=== PATIENT | male | born 1980 | race Hispanic/Latino ===

== ENCOUNTER 2017-02-05 21:26 | Emergency (ER) | payer MEDICAID ==
[2017-02-06] MEDS ORDERED: NORCO 5/325 PO ONE (01:04)
[2017-02-06] MEDS ORDERED: DELTASONE PO ONE (01:04)
[2017-02-06] MEDS ORDERED: KEFLEX PO ONE (01:05)
--- NOTE | 2017-02-06 01:37 | Emergency Department Report ---
HPI - General Chief Complaint: Wound/Laceration Time Seen by Provider: 02/06/17 00:27 - HPI HPI: Patient is a 36-year-old male presents to ED complaining of redness and a small area of left hand and wrist. Patient states a couple days ago he was helping his friend Pablo spine he felt something bite him on his arm. Patient states the past 2 days he has some swelling in his hand and some redness. Patient states he patent at the middle of the bite which started to drain. He denies fevers/chills/nausea/vomiting/chest pain/shortness of breath or any other problems. ED Past Medical Hx - Past Medical History Hx Seizures: Yes Hx Psychiatric Treatment: Yes Additional medical history: schizophrenia. bipolar. depression - Surgical History Additional Surgical History: hernia repair - Social History Smoking Status: Never Smoker Substance Use Type: None - Medications Home Medications: Home Medications Medication Instructions Recorded Confirmed Last Taken Type Sulfamethoxazole/Trimethoprim 1 each PO BID #20 tablet 01/28/14 Unknown Rx [Bactrim Ds] Cephalexin [Keflex] 500 mg PO Q6H #30 capsule 02/06/17 Unknown Rx HYDROcodone/APAP 5-325 [[place] 1 each PO Q6HR PRN #12 tablet 02/06/17 Unknown Rx 5-325 mg TAB] Ibuprofen [Motrin] 800 mg PO Q8HR PRN #30 tablet 02/06/17 Unknown Rx ED Review of Systems ROS: Stated complaint: LT HAND SWELLING POSS SPIDER BITE Other details as noted in HPI Constitutional: denies: chills, fever Eyes: denies: eye pain, eye discharge, vision change ENT: denies: ear pain, throat pain, dental pain, hearing loss Respiratory: denies: cough, shortness of breath, wheezing Cardiovascular: denies: chest pain, palpitations Endocrine: no symptoms reported Gastrointestinal: denies: abdominal pain, nausea, diarrhea Genitourinary: denies: urgency, dysuria Musculoskeletal: denies: back pain, joint swelling, arthralgia Skin: other (redness and swelling of the hand). denies: rash, lesions, pruritus Neurological: denies: headache, weakness, numbness, paresthesias Psychiatric: denies: anxiety, depression Hematological/Lymphatic: denies: easy bleeding, easy bruising Physical Exam - Physical Exam Vital Signs: Vital Signs 02/05/17 21:39 Temperature 98.8 F Pulse Rate 110 H Respiratory 18 Rate Blood Pressure 137/90 O2 Sat by Pulse 100 Oximetry Physical Exam: GENERAL: Alert and oriented x3, no apparent distress, Normal Gait, atraumatic. HEAD: Head is normocephalic and a-traumatic. EYES: Extra ocular muscles are intact. Pupils are equal, round, and reactive to light and accommodation. LUNGS: Symetrical with respiration, No wheezing, no rales or crackles, CTAB. HEART: S1, S2 present, regular rate and rhythm without murmur, no rubs, no gallops. Non tender to palpation EXTREMITIES/MUSCULOSKELETAL: No cyanosis, clubbing, rash, lesions or edema. Full ROM bilaterally. UE/LE Pulses 2+ bilaterally. 2. 3 cm erythematous swelling nonfluctuant,draining pus cellulitis on the posterior aspect of the left wrist. Minimal swelling of the left hand fingers intact. NEUROLOGIC: The patient is cooperative with no focal neurologic deficits. Cranial nerves II through XII are grossly intact. Capillary refill and normal 2 seconds bilaterally SKIN: Warm and dry, No lesions, No ulceration or induration present. ED Course Vital Signs 02/05/17 21:39 Temperature 98.8 F Pulse Rate 110 H Respiratory 18 Rate Blood Pressure 137/90 O2 Sat by Pulse 100 Oximetry ED Medical Decision Making - Medical Decision Making 36-year-old male presents with cellulitis of the left hand ED course: Patient received antibiotic, pain medication ED. Discussed with patient and patient will be sent home on traumatization of pain medication and antibiotics. Discussed with patient to keep arm dry. Discussed the patient to follow-up with primary care physician P to 5 days. Discussed if symptoms worsen to return to ED Vital signs are normal patient is not acutely distressed patient was sent instructions given and states he'll follow-up. Critical care attestation.: If time is entered above; I have spent that time in minutes in the direct care of this critically ill patient, excluding procedure time. ED Disposition Clinical Impression: Cellulitis of arm, left Insect bite Qualifiers: Encounter type: initial encounter Qualified Code(s): W57.XXXA - Bitten or stung by nonvenomous insect and other nonvenomous arthropods, initial encounter Disposition: - TO HOME OR SELFCARE Is pt being admited?: No Does the pt Need Aspirin: No Condition: Stable Instructions: Cellulitis (ED), Insect Bite or Sting (ED), Heat Pack Application (ED) Prescriptions: Cephalexin [Keflex] 500 mg PO Q6H #30 capsule HYDROcodone/APAP 5-325 [[place] 5-325 mg TAB] 1 each PO Q6HR PRN #12 tablet PRN Reason: Pain Ibuprofen [Motrin] 800 mg PO Q8HR PRN #30 tablet PRN Reason: Pain Referrals: PRIMARY CARE, [Primary Care Provider] - 3-5 Days [facility] [place] [Outside] - 3-5 Days [facility] [Outside] - 3-5 Days Forms: Accompanied Note, Work/School Release Form(ED) Time of Disposition: 01:42
[2017-02-06 02:24] VITALS: BP 128/76
== END 2017-02-06 02:24 | disposition home or self-care (01) ==
LOC: ED 21:26
DX: L03.114 Cellulitis of left upper limb (principal); F31.9 Bipolar disorder, unspecified; F20.9 Schizophrenia, unspecified; W57.XXXA Bitten or stung by nonvenomous insect and other nonvenomous arthropods, initial encounter; Y93.9 Activity, unspecified; Y92.9 Unspecified place or not applicable; Y99.9 Unspecified external cause status
CPT/HCPCS: 99282; J7512

== ENCOUNTER 2017-02-07 21:38 | Emergency (ER) | payer MEDICARE ==
[2017-02-08 00:18] LABS: Blood Urea Nitrogen 12 mg/dL (9-20); Calcium 9.2 mg/dL (8.4-10.2); Carbon Dioxide 25 mmol/L (22-30); Chloride 98.9 mmol/L (98-107); Glucose 112 mg/dL (75-100); Potassium 3.5 mmol/L (3.6-5.0); Sodium 137 mmol/L (137-145)
[2017-02-08 00:22] LABS: Hematocrit 39.1 % (35.5-45.6); Hemoglobin 12.8 gm/dl (11.8-15.2); Mean Corpuscular HGB Conc 33 % (32-34); Mean Corpuscular Hemoglobin 29 pg (28-32); Mean Corpuscular Volume 90 fl (84-94); Platelet Count 318 K/mm3 (140-440); Red Blood Count 4.35 M/mm3 (3.65-5.03); Red Cell Distribution Width 13.7 % (13.2-15.2); White Blood Count 17.8 K/mm3 (4.5-11.0)
[2017-02-08 00:38] LABS: Anion Gap 17 mmol/L
[2017-02-08 01:20] VITALS: BP 129/87
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
[2017-02-08 02:09] LABS: Basophils % (Manual) 0 % (0.0-1.8); Blastocytes % (Manual) 0 %; Eosinophils % (Manual) 0 % (0.0-4.3)
[2017-02-08 02:12] LABS: Diff Status Complete; Platelet Estimate Consistent w Auto
--- NOTE | 2017-02-11 16:03 | ED Elopement Review ---
ED Pt Elopement review - Results review Lab results: Laboratory Tests 02/07/17 02/07/17 23:37 23:37 WBC 17.8 H RBC 4.35 Hgb 12.8 Hct 39.1 MCV 90 MCH 29 MCHC 33 RDW 13.7 Plt Count 318 Add Manual Diff Complete Total Counted 100 Seg Neuts % (Manual) 74.0 H Band Neutrophils % 2.0 Lymphocytes % (Manual) 20.0 Reactive Lymphs % (Man) 1.0 Monocytes % (Manual) 3.0 Eosinophils % (Manual) 0 Basophils % (Manual) 0 Metamyelocytes % 0 Myelocytes % 0 Promyelocytes % 0 Blast Cells % 0 Nucleated RBC % Not Reportable Seg Neutrophils # Man 13.2 H Band Neutrophils # 0.4 Lymphocytes # (Manual) 3.6 Abs React Lymphs (Man) 0.2 Monocytes # (Manual) 0.5 Eosinophils # (Manual) 0.0 Basophils # (Manual) 0.0 Metamyelocytes # 0.0 Myelocytes # 0.0 Promyelocytes # 0.0 Blast Cells # 0.0 WBC Morphology Not Reportable Hypersegmented Neuts Not Reportable Hyposegmented Neuts Not Reportable Hypogranular Neuts Not Reportable Smudge Cells Not Reportable Toxic Granulation Not Reportable Toxic Vacuolation Not Reportable Dohle Bodies Not Reportable Pelger-Huet Anomaly Not Reportable Fang Rods Not Reportable Platelet Estimate Consistent w auto Clumped Platelets Not Reportable Plt Clumps, EDTA Not Reportable Large Platelets Not Reportable Giant Platelets Not Reportable Platelet Satelliting Not Reportable Plt Morphology Comment Not Reportable RBC Morphology Not Reportable Dimorphic RBCs Not Reportable Polychromasia Not Reportable Hypochromasia Not Reportable Poikilocytosis Not Reportable Anisocytosis Not Reportable Microcytosis Not Reportable Macrocytosis Not Reportable Spherocytes Not Reportable Pappenheimer Bodies Not Reportable Sickle Cells Not Reportable Target Cells Not Reportable Tear Drop Cells Not Reportable Ovalocytes Not Reportable Helmet Cells Not Reportable Barajas-Truro Bodies Not Reportable Baker Rings Not Reportable Commercial Point Cells Not Reportable Bite Cells Not Reportable Crenated Cell Not Reportable Elliptocytes Not Reportable Acanthocytes (Spur) Not Reportable Rouleaux Not Reportable Hemoglobin C Crystals Not Reportable Schistocytes Not Reportable Malaria parasites Not Reportable Petr Bodies Not Reportable Hem Pathologist Commnt No Sodium 137 Potassium 3.5 L Chloride 98.9 Carbon Dioxide 25 Anion Gap 17 BUN 12 Creatinine 0.6 L Estimated GFR > 60 BUN/Creatinine Ratio 20.00 Glucose 112 H Calcium 9.2 - Call Back decision Pt Call Back Decision: Call pt to return to ED [facility]
== END 2017-02-08 03:01 ==
LOC: ED 21:38
DX: S69.92XA Unspecified injury of left wrist, hand and finger(s), initial encounter (principal); Z53.21 Procedure and treatment not carried out due to patient leaving prior to being seen by health care provider; X58.XXXA Exposure to other specified factors, initial encounter; Y93.89 Activity, other specified; Y92.89 Other specified places as the place of occurrence of the external cause; Y99.8 Other external cause status
CPT/HCPCS: 36415; 80048; 85007; 85025; 87040

== ENCOUNTER 2018-04-16 04:27 | Emergency (ER) | payer MEDICAID, MEDICARE ==
[2018-04-16 05:15] LABS: Hematocrit 45.3 % (35.5-45.6); Hemoglobin 15.4 gm/dl (11.8-15.2); Mean Corpuscular HGB Conc 34 % (32-34); Mean Corpuscular Hemoglobin 30 pg (28-32); Mean Corpuscular Volume 88 fl (84-94); Platelet Count 390 K/mm3 (140-440); Red Blood Count 5.18 M/mm3 (3.65-5.03); Red Cell Distribution Width 13.4 % (13.2-15.2)
[2018-04-16 05:26] LABS: Bacteria,Urine 1+ /HPF (Negative); Bilirubin,Urine NEG (Negative); Blood,Urine NEG (Negative); Color,Urine Yellow (Yellow); Mucus,Urine 3+ /HPF
[2018-04-16 05:31] LABS: Amphetamine Screen,Urine PRESUMPTIVE NEGATIVE; Benzodiazepines Screen,Urine PRESUMPTIVE NEGATIVE; Methadone Screen,Urine PRESUMPTIVE NEGATIVE; Opiate Screen,Urine PRESUMPTIVE NEGATIVE
[2018-04-16 05:38] LABS: BUN/Creatinine Ratio 24; Blood Urea Nitrogen 22 mg/dL (9-20); Calcium 9.4 mg/dL (8.4-10.2); Hemolysis Index 6
[2018-04-16 05:54] LABS: Cannabinoid Screen,Urine PRESUMPTIVE POSITIVE; Cocaine Screen,Urine PRESUMPTIVE POSITIVE
[2018-04-16 06:04] LABS: Band Neutrophils # (Manual) 0.3 K/mm3; Basophils % (Manual) 0 % (0.0-1.8); Platelet Estimate Consistent w Auto; RBC Morphology Normal; Total Cells Counted 100
[2018-04-16] MEDS ORDERED: NACL 0.9% 1000 ML 1,000 ML IV ONE (11:03)
[2018-04-16 11:18] LABS: Creatine Kinase MB 8.1 ng/mL (0.0-4.0)
[2018-04-16 11:20] LABS: Alanine Aminotransferase 21 units/L (7-56); Albumin 5.2 g/dL (3.9-5)
[2018-04-16 11:25] LABS: Bilirubin,Direct < 0.2 mg/dL (0-0.2)
--- NOTE | 2018-04-16 15:12 | Consultation ---
History of Present Illness - Reason for Consult Consult date: 04/16/18 Reason for consult: Mental Health Evaluation Requesting physician: TOSHIA TAVERA - Chief Complaint Chief complaint: "I need help" - History of Present Psychiatric Illness 37 y.o. white male presenting to the ER for detox. Today the patient is calm and cooperative during the assessment. He stated that his life has been up and down because of recreational drug use. He stated that "drugs" has been his down fall. He stated being in rehab once, but didn't complete the program. He stated that he used marijuana, methamphetamine, and cocaine prior to his ER visit. He stated binging (drugs) for the past 4 days. He stated seeing a psychiatrist for depression in the past. He stated that his depression may "disappear" once he stop using "drugs" and make better decisions. He denies SI/HI's and AVH's. He denies a poor appetite, but stated that his sleep has been erratic since being homeless. He stated drinking alcohol "sometimes." Medications and Allergies Allergies Allergy/AdvReac Type Severity Reaction Status Date / Time No Known Allergies Allergy Unverified 09/28/13 15:45 Home Medications Medication Instructions Recorded Confirmed Last Taken Type Sulfamethoxazole/Trimethoprim 1 each PO BID #20 tablet 01/28/14 Unknown Rx [Bactrim Ds] HYDROcodone/APAP 5-325 [[place] 1 each PO Q6HR PRN #12 tablet 02/06/17 Unknown Rx 5-325 mg TAB] Ibuprofen [Motrin] 800 mg PO Q8HR PRN #30 tablet 02/06/17 Unknown Rx cephALEXin [Keflex] 500 mg PO Q6H #30 capsule 02/06/17 Unknown Rx Past psychiatric history - Past Medical History Past Medical History: No medical history Past Surgical History: No surgical history - past Psychiatric treatment and history psychiatric treatment history: Hx of substance abuse. Denies a fam psy hx. - Social History Social history: other (Homeless) Mental Status Exam - Vital signs Last Vital Signs Temp 98.2 F 04/16/18 08:00 Pulse 92 H 04/16/18 08:00 Resp 18 04/16/18 11:07 BP 125/95 04/16/18 08:00 Pulse Ox 99 04/16/18 08:00 - Exam Narrative exam: MSE: Appearance: calm, cooperative Behavior: regular eye contact Speech: regular rate and tone Mood: "okay" Affect: congruent to mood Thought Process: linear Thought Content: denies SI/HI's and AVH's Motor Activity: ambulatory Cognition: A/O x3 Insight: appropriate Judgment: appropriate Results Result Diagrams: 04/16/18 04:57 04/16/18 04:57 Abnormal lab results 04/16/18 04/16/18 04/16/18 Range/Units 04:57 04:57 04:57 WBC (4.5-11.0) K/mm3 RBC (3.65-5.03) M/mm3 Hgb (11.8-15.2) gm/dl Lymphocytes % (Manual) (13.4-35.0) % Lymphocytes # (Manual) (1.2-5.4) K/mm3 Sodium 134 L (137-145) mmol/L Chloride 95.0 L (98-107) mmol/L Carbon Dioxide 21 L (22-30) mmol/L BUN 22 H (9-20) mg/dL Glucose 101 H (75-100) mg/dL Total Creatine Kinase (55-170) units/L CK-MB (CK-2) (0.0-4.0) ng/mL Albumin (3.9-5) g/dL Ur Specific [place] (1.003-1.030) Salicylates < 0.3 L (2.8-20.0) mg/dL Acetaminophen < 5.0 L (10.0-30.0) ug/mL 04/16/18 04/16/18 04/16/18 Range/Units 04:57 04:57 05:00 WBC 13.9 H (4.5-11.0) K/mm3 RBC 5.18 H (3.65-5.03) M/mm3 Hgb 15.4 H (11.8-15.2) gm/dl Lymphocytes % (Manual) 48.0 H (13.4-35.0) % Lymphocytes # (Manual) 6.7 H (1.2-5.4) K/mm3 Sodium (137-145) mmol/L Chloride (98-107) mmol/L Carbon Dioxide (22-30) mmol/L BUN (9-20) mg/dL Glucose (75-100) mg/dL Total Creatine Kinase 700 H (55-170) units/L CK-MB (CK-2) 8.1 H (0.0-4.0) ng/mL Albumin 5.2 H (3.9-5) g/dL Ur Specific [place] 1.034 H (1.003-1.030) Salicylates (2.8-20.0) mg/dL Acetaminophen (10.0-30.0) ug/mL All other labs normal. Assessment and Plan Assessment and plan: Impression: Hx of Depression. Substance Use DO (cocaine). Cannabis Use DO. Today the patient is calm and cooperative during the assessment. Recommendation/Plan: The patient will volunteer for [facility] for outpatient psy services once discharged. Discussed the importance to abstain from recreational drug use.
--- NOTE | 2018-04-16 15:40 | Emergency Department Report ---
ED Psych HPI - General Chief Complaint: Psych Stated Complaint: MENTAL HEALTH Time Seen by Provider: 04/16/18 10:19 Source: patient Mode of arrival: Ambulatory - History of Present Illness Initial Comments: 37-year-old male states that he is looking for a long-term detox program for cocaine. He states that he was admitted to [facility] last week and discharged from the acute care program. He states that he is not suicidal homicidal nor hallucinating. He clearly is requesting a longterm rehabilitation program. He denies any overdose or thoughts of self harm. I believe he was admitted last week most likely for suicidal ideation. He states that he has been involved with a girl and abusing crack cocaine. He also states that he has been walking a lot and that his feet hurt. Otherwise he has no active complaints. MD Complaint: other (substance abuse) -: year(s) Associated Psychiatric Symptoms: none History of same: Yes Quality: intermittent Improves With: none Worsens With: none Context: recent drug abuse Associated Symptoms: denies other symptoms (except as above indicated) Treatments Prior to Arrival: none - Related Data Previous Rx's Medication Instructions Recorded Last Taken Type Sulfamethoxazole/Trimethoprim 1 each PO BID #20 tablet 01/28/14 Unknown Rx [Bactrim Ds] HYDROcodone/APAP 5-325 [[place] 1 each PO Q6HR PRN #12 tablet 02/06/17 Unknown Rx 5-325 mg TAB] Ibuprofen [Motrin] 800 mg PO Q8HR PRN #30 tablet 02/06/17 Unknown Rx cephALEXin [Keflex] 500 mg PO Q6H #30 capsule 02/06/17 Unknown Rx Allergies Allergy/AdvReac Type Severity Reaction Status Date / Time No Known Allergies Allergy Unverified 09/28/13 15:45 ED Review of Systems ROS: Stated complaint: MENTAL HEALTH Other details as noted in HPI Constitutional: denies: chills, fever Eyes: denies: eye pain, eye discharge, vision change ENT: denies: ear pain, throat pain Respiratory: denies: cough, shortness of breath, wheezing Cardiovascular: denies: chest pain, palpitations Endocrine: no symptoms reported Gastrointestinal: denies: abdominal pain, nausea, diarrhea Genitourinary: denies: urgency, dysuria Musculoskeletal: denies: back pain, joint swelling, arthralgia Skin: denies: rash, lesions Neurological: denies: headache, weakness, paresthesias Psychiatric: as per HPI. denies: anxiety, depression, auditory hallucinations, visual hallucinations, homicidal thoughts, suicidal thoughts Hematological/Lymphatic: denies: easy bleeding, easy bruising ED Past Medical Hx - Past Medical History Previous Medical History?: Yes Hx Seizures: Yes Hx Psychiatric Treatment: Yes (Bipolar, Depression, Schizophrenia) Additional medical history: schizophrenia, bipolar, depression as child - Surgical History Past Surgical History?: Yes Additional Surgical History: hernia repair - Social History Smoking Status: Current Every Day Smoker Substance Use Type: Cocaine - Medications Home Medications: Home Medications Medication Instructions Recorded Confirmed Last Taken Type Sulfamethoxazole/Trimethoprim 1 each PO BID #20 tablet 01/28/14 Unknown Rx [Bactrim Ds] HYDROcodone/APAP 5-325 [[place] 1 each PO Q6HR PRN #12 tablet 02/06/17 Unknown Rx 5-325 mg TAB] Ibuprofen [Motrin] 800 mg PO Q8HR PRN #30 tablet 02/06/17 Unknown Rx cephALEXin [Keflex] 500 mg PO Q6H #30 capsule 02/06/17 Unknown Rx ED Physical Exam - General Limitations: No Limitations General appearance: alert, in no apparent distress - Head Head exam: Present: atraumatic, normocephalic - Eye Eye exam: Present: normal appearance, PERRL, EOMI. Absent: scleral icterus - ENT ENT exam: Present: mucous membranes moist - Neck Neck exam: Present: normal inspection - Respiratory Respiratory exam: Present: normal lung sounds bilaterally. Absent: respiratory distress - Cardiovascular Cardiovascular Exam: Present: regular rate, normal rhythm. Absent: systolic murmur, diastolic murmur, rubs, gallop - GI/Abdominal GI/Abdominal exam: Present: soft, normal bowel sounds. Absent: distended, tenderness, guarding, rebound, rigid - Rectal Rectal exam: Present: deferred - Extremities Exam Extremities exam: Present: normal inspection - Back Exam Back exam: Present: normal inspection - Neurological Exam Neurological exam: Present: alert, oriented X3, CN II-XII intact. Absent: motor sensory deficit - Psychiatric Psychiatric exam: Present: normal mood, flat affect - Skin Skin exam: Present: warm, dry, intact, normal color. Absent: rash ED Course Vital Signs 04/16/18 04/16/18 04/16/18 04:31 05:56 08:00 Temperature 98.8 F 98.2 F Pulse Rate 101 H 92 H Respiratory 18 20 Rate Blood Pressure 129/95 125/95 Blood Pressure 131/85 [Right] O2 Sat by Pulse 95 99 Oximetry 04/16/18 11:07 Temperature Pulse Rate Respiratory 18 Rate Blood Pressure Blood Pressure [Right] O2 Sat by Pulse Oximetry - Reevaluation(s) Reevaluation #1: Referred with psychiatric nurse practitioner who saw the patient. They agree that the patient is appropriate for a PHP program at [place]. He will be sent there. He was noted to have mild rhabdomyolysis. He was given IV fluids. That should suffice. On reexamination the patient had no complaints. He was resting comfortably. 04/16/18 15:41 04/16/18 15:41 ED Medical Decision Making - Lab Data Result diagrams: 04/16/18 04:57 04/16/18 04:57 Laboratory Results - last 24 hr 04/16/18 04/16/18 04/16/18 04:57 04:57 04:57 WBC RBC Hgb Hct MCV MCH MCHC RDW Plt Count Lymph # Add Manual Diff Total Counted Seg Neuts % (Manual) Band Neutrophils % Lymphocytes % (Manual) Reactive Lymphs % (Man) Monocytes % (Manual) Eosinophils % (Manual) Basophils % (Manual) Metamyelocytes % Myelocytes % Promyelocytes % Blast Cells % Nucleated RBC % Seg Neutrophils # Man Band Neutrophils # Lymphocytes # (Manual) Abs React Lymphs (Man) Monocytes # (Manual) Eosinophils # (Manual) Basophils # (Manual) Metamyelocytes # Myelocytes # Promyelocytes # Blast Cells # WBC Morphology Hypersegmented Neuts Hyposegmented Neuts Hypogranular Neuts Smudge Cells Toxic Granulation Toxic Vacuolation Dohle Bodies Pelger-Huet Anomaly Fang Rods Platelet Estimate Clumped Platelets Plt Clumps, EDTA Large Platelets Giant Platelets Platelet Satelliting Plt Morphology Comment RBC Morphology Dimorphic RBCs Polychromasia Hypochromasia Poikilocytosis Anisocytosis Microcytosis Macrocytosis Spherocytes Pappenheimer Bodies Sickle Cells Target Cells Tear Drop Cells Ovalocytes Helmet Cells [place] Bodies [place] Rings [place] Cells Bite Cells Crenated Cell Elliptocytes Acanthocytes (Spur) Rouleaux Hemoglobin C Crystals Schistocytes Malaria parasites Petr Bodies Hem Pathologist Commnt Sodium 134 L Potassium 3.6 Chloride 95.0 L Carbon Dioxide 21 L Anion Gap 22 BUN 22 H Creatinine 0.9 Estimated GFR > 60 BUN/Creatinine Ratio 24 Glucose 101 H Calcium 9.4 Total Bilirubin Direct Bilirubin Indirect Bilirubin AST ALT Alkaline Phosphatase Total Creatine Kinase CK-MB (CK-2) CK-MB (CK-2) Rel Index Total Protein Albumin Albumin/Globulin Ratio Urine Color Urine Turbidity Urine pH Ur Specific [place] Urine Protein Urine Glucose (UA) Urine Ketones Urine Blood Urine Nitrite Urine Bilirubin Urine Urobilinogen Ur Leukocyte Esterase Urine WBC (Auto) Urine RBC (Auto) U Epithel Cells (Auto) Urine Bacteria (Auto) Urine Mucus Salicylates < 0.3 L Urine Opiates Screen Urine Methadone Screen Acetaminophen < 5.0 L Ur Barbiturates Screen Ur Phencyclidine Scrn Ur Amphetamines Screen U Benzodiazepines Scrn Urine Cocaine Screen U Marijuana (THC) Screen Drugs of Abuse Note Plasma/Serum Alcohol 04/16/18 04/16/18 04/16/18 04:57 04:57 04:57 WBC 13.9 H RBC 5.18 H Hgb 15.4 H Hct 45.3 MCV 88 MCH 30 MCHC 34 RDW 13.4 Plt Count 390 Lymph # Senior Technical Analyst Add Manual Diff Complete Total Counted 100 Seg Neuts % (Manual) 44.0 Band Neutrophils % 2.0 Lymphocytes % (Manual) 48.0 H Reactive Lymphs % (Man) 2.0 Monocytes % (Manual) 3.0 Eosinophils % (Manual) 1.0 Basophils % (Manual) 0 Metamyelocytes % 0 Myelocytes % 0 Promyelocytes % 0 Blast Cells % 0 Nucleated RBC % Not Reportable Seg Neutrophils # Man 6.1 Band Neutrophils # 0.3 Lymphocytes # (Manual) 6.7 H Abs React Lymphs (Man) 0.3 Monocytes # (Manual) 0.4 Eosinophils # (Manual) 0.1 Basophils # (Manual) 0.0 Metamyelocytes # 0.0 Myelocytes # 0.0 Promyelocytes # 0.0 Blast Cells # 0.0 WBC Morphology Not Reportable Hypersegmented Neuts Not Reportable Hyposegmented Neuts Not Reportable Hypogranular Neuts Not Reportable Smudge Cells Not Reportable Toxic Granulation Not Reportable Toxic Vacuolation Not Reportable Dohle Bodies Not Reportable Pelger-Huet Anomaly Not Reportable Fang Rods Not Reportable Platelet Estimate Consistent w auto Clumped Platelets Not Reportable Plt Clumps, EDTA Not Reportable Large Platelets Not Reportable Giant Platelets Not Reportable Platelet Satelliting Not Reportable Plt Morphology Comment Not Reportable RBC Morphology Normal Dimorphic RBCs Not Reportable Polychromasia Not Reportable Hypochromasia Not Reportable Poikilocytosis Not Reportable Anisocytosis Not Reportable Microcytosis Not Reportable Macrocytosis Not Reportable Spherocytes Not Reportable Pappenheimer Bodies Not Reportable Sickle Cells Not Reportable Target Cells Not Reportable Tear Drop Cells Not Reportable Ovalocytes Not Reportable Helmet Cells Not Reportable [place] Bodies Not Reportable Rapelje Rings Not Reportable [place] Cells Not Reportable Bite Cells Not Reportable Crenated Cell Not Reportable Elliptocytes Not Reportable Acanthocytes (Spur) Not Reportable Rouleaux Not Reportable Hemoglobin C Crystals Not Reportable Schistocytes Not Reportable Malaria parasites Not Reportable Petr Bodies Not Reportable Hem Pathologist Commnt No Sodium Potassium Chloride Carbon Dioxide Anion Gap BUN Creatinine Estimated GFR BUN/Creatinine Ratio Glucose Calcium Total Bilirubin 0.40 Direct Bilirubin < 0.2 Indirect Bilirubin 0.2 AST 38 ALT 21 Alkaline Phosphatase 93 Total Creatine Kinase 700 H CK-MB (CK-2) 8.1 H CK-MB (CK-2) Rel Index 1.1 Total Protein 8.0 Albumin 5.2 H Albumin/Globulin Ratio 1.9 Urine Color Urine Turbidity Urine pH Ur Specific [place] Urine Protein Urine Glucose (UA) Urine Ketones Urine Blood Urine Nitrite Urine Bilirubin Urine Urobilinogen Ur Leukocyte Esterase Urine WBC (Auto) Urine RBC (Auto) U Epithel Cells (Auto) Urine Bacteria (Auto) Urine Mucus Salicylates Urine Opiates Screen Urine Methadone Screen Acetaminophen Ur Barbiturates Screen Ur Phencyclidine Scrn Ur Amphetamines Screen U Benzodiazepines Scrn Urine Cocaine Screen U Marijuana (THC) Screen Drugs of Abuse Note Plasma/Serum Alcohol < 0.01 04/16/18 04/16/18 05:00 05:00 WBC RBC Hgb Hct MCV MCH MCHC RDW Plt Count Lymph # Add Manual Diff Total Counted Seg Neuts % (Manual) Band Neutrophils % Lymphocytes % (Manual) Reactive Lymphs % (Man) Monocytes % (Manual) Eosinophils % (Manual) Basophils % (Manual) Metamyelocytes % Myelocytes % Promyelocytes % Blast Cells % Nucleated RBC % Seg Neutrophils # Man Band Neutrophils # Lymphocytes # (Manual) Abs React Lymphs (Man) Monocytes # (Manual) Eosinophils # (Manual) Basophils # (Manual) Metamyelocytes # Myelocytes # Promyelocytes # Blast Cells # WBC Morphology Hypersegmented Neuts Hyposegmented Neuts Hypogranular Neuts Smudge Cells Toxic Granulation Toxic Vacuolation Dohle Bodies Pelger-Huet Anomaly Fang Rods Platelet Estimate Clumped Platelets Plt Clumps, EDTA Large Platelets Giant Platelets Platelet Satelliting Plt Morphology Comment RBC Morphology Dimorphic RBCs Polychromasia Hypochromasia Poikilocytosis Anisocytosis Microcytosis Macrocytosis Spherocytes Pappenheimer Bodies Sickle Cells Target Cells Tear Drop Cells Ovalocytes Helmet Cells [place] Bodies Rapel[place] Rings [place] Cells Bite Cells Crenated Cell Elliptocytes Acanthocytes (Spur) Rouleaux Hemoglobin C Crystals Schistocytes Malaria parasites Petr Bodies Hem Pathologist Commnt Sodium Potassium Chloride Carbon Dioxide Anion Gap BUN Creatinine Estimated GFR BUN/Creatinine Ratio Glucose Calcium Total Bilirubin Direct Bilirubin Indirect Bilirubin AST ALT Alkaline Phosphatase Total Creatine Kinase CK-MB (CK-2) CK-MB (CK-2) Rel Index Total Protein Albumin Albumin/Globulin Ratio Urine Color Yellow Urine Turbidity Slightly-cloudy Urine pH 5.0 Ur Specific [place] 1.034 H Urine Protein 100 mg/dl Urine Glucose (UA) Neg Urine Ketones Tr Urine Blood Neg Urine Nitrite Neg Urine Bilirubin Neg Urine Urobilinogen 2.0 Ur Leukocyte Esterase Neg Urine WBC (Auto) 3.0 Urine RBC (Auto) 10.0 U Epithel Cells (Auto) 1.0 Urine Bacteria (Auto) 1+ Urine Mucus 3+ Salicylates Urine Opiates Screen Presumptive negative Urine Methadone Screen Presumptive negative Acetaminophen Ur Barbiturates Screen Presumptive negative Ur Phencyclidine Scrn Presumptive negative Ur Amphetamines Screen Presumptive negative U Benzodiazepines Scrn Presumptive negative Urine Cocaine Screen Presumptive positive U Marijuana (THC) Screen Presumptive positive Drugs of Abuse Note Disclamer Plasma/Serum Alcohol Critical care attestation.: If time is entered above; I have spent that time in minutes in the direct care of this critically ill patient, excluding procedure time. ED Disposition Clinical Impression: Substance abuse, Medical clearance for psychiatric admission Rhabdomyolysis Qualifiers: Rhabdomyolysis type: non-traumatic Qualified Code(s): M62.82 - Rhabdomyolysis Disposition: DC- TO HOME OR SELFCARE Is pt being admited?: No Does the pt Need Aspirin: No Condition: Stable Instructions: Cocaine Abuse (ED) Additional Instructions: PH P program for anchored. Drink adequate fluids. Return any acute change or problem. Referrals: PRIMARY CARE, [Primary Care Provider] - 3-5 Days Time of Disposition: 15:45
[2018-04-16] MEDS ORDERED: TYLENOL PO ONE (20:06)
[2018-04-16 20:19] VITALS: BP 120/80
== END 2018-04-17 11:17 | disposition home or self-care (01) ==
LOC: EEVIPCON 04:27 → ED 04:27
DX: F19.10 Other psychoactive substance abuse, uncomplicated (principal); M62.82 Rhabdomyolysis; F31.9 Bipolar disorder, unspecified; F20.9 Schizophrenia, unspecified; F17.200 Nicotine dependence, unspecified, uncomplicated
CPT/HCPCS: 36415; 80048; 80074; 80307; 81001; 82550; 82553; 85007; 85025; 96360; 96361; 99284; G0480; J7030; 80320

== ENCOUNTER 2019-05-27 11:50 | Emergency (ER) | payer MEDICARE ==
[2019-05-27 12:14] VITALS: BP 134/95
--- NOTE | 2019-05-27 12:15 | Event Note ---
ED Screening Note Date of service: 05/27/19 Time: 12:13 ED Screening Note: This is a 39 y.o. M. that presents to the ER with left sided neck pain for 2 weeks. Current smoker. Reports pain as worsening with movement. States it feel like a bad cramp. This initial assessment/diagnostic orders/clinical plan/treatment(s) is/are subject to change based on patients health status, clinical progression and re- assessment by fellow clinical providers in the ED. Further treatment and workup at subsequent clinical providers discretion. Patient/guardian urged not to elope from the ED as their condition may be serious if not clinically assessed and managed. Initial orders include: XR C-spine
--- NOTE | 2019-05-27 13:20 | XRay Report ---
CERVICAL SPINE SERIES 4 VIEWS INDICATION: left lateral pain. COMPARISON: No relevant prior imaging study available. FINDINGS: No acute, displaced fracture or subluxation is seen. There is no prevertebral soft tissue swelling. M ild mid to lower cervical discogenic and facet arthropathy is noted. No soft tissue swelling is seen. IMPRESSION: 1. No acute findings. Signer Name: Cedrick Gregory MD Signed: 05/27/2019 1:16 PM Workstation Name: [id number]
--- NOTE | 2019-05-27 13:25 | Emergency Department Report ---
ED Neck Pain/Injury HPI - General Chief Complaint: Neck Pain/Injury Stated Complaint: NECK PAIN Time Seen by Provider: 05/27/19 12:13 Mode of arrival: Ambulatory Limitations: No Limitations - History of Present Illness Initial Comments: Patient is 39 years old male with no significant past medical history. Patient presented to the ER complaining of neck pain started one week ago. Patient stated that he woke up with the pain and he felt like he slept wrong. Patient denied any weakness, numbness or tingling sensation. No bowel or bladder incontinence. Patient denied any headache or fever. MD Complaint: neck pain -: week(s) (one) Place: home Severity: moderate Quality: dull Consistency: intermittent Improves With: remaining still Worsens With: movement of neck Context: turning/bending Associated Symptoms: none - Related Data Previous Rx's Medication Instructions Recorded Last Taken Type Sulfamethoxazole/Trimethoprim 1 each PO BID #20 tablet 01/28/14 Unknown Rx [Bactrim Ds] HYDROcodone/APAP 5-325 [[place] 1 each PO Q6HR PRN #12 tablet 02/06/17 Unknown Rx 5-325 mg TAB] Ibuprofen [Motrin] 800 mg PO Q8HR PRN #30 tablet 02/06/17 Unknown Rx cephALEXin [Keflex] 500 mg PO Q6H #30 capsule 02/06/17 Unknown Rx Allergies Allergy/AdvReac Type Severity Reaction Status Date / Time No Known Allergies Allergy Unverified 09/28/13 15:45 ED Review of Systems ROS: Stated complaint: NECK PAIN Other details as noted in HPI Comment: All other systems reviewed and negative Constitutional: denies: chills, fever Respiratory: denies: cough, shortness of breath, SOB with exertion Cardiovascular: denies: chest pain, palpitations Gastrointestinal: denies: abdominal pain, nausea, vomiting Musculoskeletal: denies: back pain ED Past Medical Hx - Past Medical History Previous Medical History?: Yes Hx Seizures: Yes Hx Psychiatric Treatment: Yes (Bipolar, Depression, Schizophrenia) Additional medical history: schizophrenia, bipolar, depression as child - Surgical History Past Surgical History?: Yes Additional Surgical History: hernia repair - Social History Smoking Status: Current Every Day Smoker Substance Use Type: None - Medications Home Medications: Home Medications Medication Instructions Recorded Confirmed Last Taken Type Sulfamethoxazole/Trimethoprim 1 each PO BID #20 tablet 01/28/14 Unknown Rx [Bactrim Ds] HYDROcodone/APAP 5-325 [[place] 1 each PO Q6HR PRN #12 tablet 02/06/17 Unknown Rx 5-325 mg TAB] Ibuprofen [Motrin] 800 mg PO Q8HR PRN #30 tablet 02/06/17 Unknown Rx cephALEXin [Keflex] 500 mg PO Q6H #30 capsule 02/06/17 Unknown Rx ED Physical Exam - General Limitations: No Limitations General appearance: alert, in no apparent distress - Head Head exam: Present: atraumatic, normocephalic, normal inspection - Eye Eye exam: Present: normal appearance - ENT ENT exam: Present: normal exam, normal orophraynx, mucous membranes moist - Neck Neck exam: Present: normal inspection, full ROM, other (muscle spasm). Absent: tenderness, meningismus, lymphadenopathy, thyromegaly - Respiratory Respiratory exam: Present: normal lung sounds bilaterally - Cardiovascular Cardiovascular Exam: Present: regular rate, normal rhythm, normal heart sounds - GI/Abdominal GI/Abdominal exam: Present: soft, normal bowel sounds. Absent: distended, tenderness, guarding, rebound, rigid - Extremities Exam Extremities exam: Present: normal inspection, full ROM, normal capillary refill - Back Exam Back exam: Present: normal inspection, full ROM. Absent: CVA tenderness (R), CVA tenderness (L) - Neurological Exam Neurological exam: Present: alert, oriented X3, CN II-XII intact, normal gait - Psychiatric Psychiatric exam: Present: normal mood - Skin Skin exam: Present: warm, intact, normal color ED Course Vital Signs 05/27/19 12:13 Temperature 97.9 F Pulse Rate 70 Respiratory 20 Rate Blood Pressure 134/95 O2 Sat by Pulse 99 Oximetry ED Medical Decision Making - Radiology Data Radiology results: report reviewed Cervical spine x-rays negative for acute finding. Critical care attestation.: If time is entered above; I have spent that time in minutes in the direct care of this critically ill patient, excluding procedure time. ED Disposition Clinical Impression: Neck pain on left side Disposition: DC-01 TO HOME OR SELFCARE Is pt being admited?: No Condition: Stable Instructions: Cervical Sprain (ED) Referrals: [facility] [Provider Group] - 3-5 Days
== END 2019-05-27 14:01 | disposition home or self-care (01) ==
LOC: ED 11:50
DX: M54.2 Cervicalgia (principal); F17.200 Nicotine dependence, unspecified, uncomplicated; F31.9 Bipolar disorder, unspecified; F20.9 Schizophrenia, unspecified; Z79.899 Other long term (current) drug therapy; Z98.890 Other specified postprocedural states
CPT/HCPCS: 72040